=== PATIENT | male | born 1945 | race Caucasian/White ===

== ENCOUNTER 2023-02-10 10:28 | Observation (INO) ==
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
[~2023-02-10 10:28] MED LIST: ACETAMINOPHEN 500 MG TAB PO SCH; CeleBREX 200 MG CAP PO SCH; FAMOTIDINE 20 MG TAB PO SCH; GABAPENTIN 300 MG CAP PO SCH; LR 500ML BOLUS, THEN 15ML/HR IV SCH; METOCLOPRAMIDE HCL 10 MG TABLET PO SCH; ROPIVACAINE 0.5% 5 MG/ML 30 ML VIAL ONE; ROPIVACAINE 0.5% HCL/PF 150 MG, BUPIVACAINE 0.75% MPF 20 ML, EPINEPHrine 30MG/30ML (OR ... INSTIL SCH; TRANEXAMIC ACID 1,000 MG **IV Intra-op IV SCH; TRANEXAMIC ACID 1,000 MG **IV Pre-op IV SCH; ceFAZolin 2000MG 2,000 MG/15 ML SYR IV SCH; dexAMETHasone 4 MG TAB PO SCH
[2023-02-10] MEDS ORDERED: MIDAZOLAM HCL 1 MG/ML 2ML VIAL ONE (11:28)
[2023-02-10] MEDS ORDERED: fentaNYL citrate PF 100 MCG/2 ML VIAL ONE (11:32)
--- NOTE | 2023-02-10 12:22 | History & Physical Bridge Note ---
Date of Service February 10, 2023 History & Physical Bridge Note I have examined the patient, reviewed the History & Physical and in the interval since the performance of the History & Physical I have noted the following changes of clinical significance: no changes noted
[2023-02-10] MEDS ORDERED: PROPOFOL IV EMULSION 10 MG/ML 20 ML VIAL IV ONE (12:41)
[2023-02-10] MEDS ORDERED: LIDOCAINE 2% 2 ML VIAL/AMP(20MG/ML) INFIL ONE (12:41)
[2023-02-10] MEDS ORDERED: ORTHO JOINT ANESTHETIC ONE (13:02)
[2023-02-10] MEDS ORDERED: DEXAMETHASONE SOD INJ 4 MG/ML VIAL ONE (13:22)
[2023-02-10] MEDS ORDERED: ONDANSETRON INJ 2 MG/ML 2 ML VIAL ONE ×2 (13:22→15:54)
[2023-02-10] MEDS ORDERED: ePHEDrine sulfate 50 MG/ML SYR ONE (13:46)
[2023-02-10] MEDS ORDERED: KETAMINE 50 MG/5 ML SYRINGE ONE (14:22)
[2023-02-10] MEDS ORDERED: GLYCOPYRROLATE 0.2 MG/ML VIAL ONE (14:22)
[2023-02-10] MEDS ORDERED: HYDROmorphone INJ 2 MG/ML SYR/VIAL ONE (14:39)
[2023-02-10] MEDS ORDERED: KETOROLAC 30 MG/ML VIAL ONE (15:54)
--- NOTE | 2023-02-10 16:18 | Post Operative Brief Note ---
Immediate Post Op Note v1 Date of Surgery February 10, 2023 Pre & Post Diagnosis Operation Date: 02/10/23 12:10 Pre-Op Diagnosis: Left Knee Osteoarthritis, Retained Hardware, History tibial plateau fracture Post-Op Diagnosis: Left Knee Osteoarthritis, Retained Hardware , history tibial plateau fracture I identified the patient and participated in the time-out.: Yes Procedure Operation Date: 02/10/23 12:10 Actual Procedures p Left Total Knee Arthroplasty, Hardware Removal(Left), lateral release - Amandeep Downs MD Surgeon Amandeep Downs MD Manager Of Enterprise Morro GODINEZ Estimated Blood Loss 25 Findings Consistent with Post-Op Diagnosis Specimens bone cuts and plate Drains Hemovac Drain Anesthesia Type General Regional Complications none Disposition Disposition: Recovery Room Overlapping Procedure I was present for: the critical portions of procedure. Back up surgeon: was not required during procedure.
--- NOTE | 2023-02-10 16:57 | XRay Report ---
TWO VIEWS LEFT KNEE CLINICAL HISTORY: Postoperative examination. FINDINGS: AP and crosstable lateral portable views of the left knee are obtained. A left knee arthrop lasty is in near anatomic alignment. There has been undersurface remodeling of the patella. There is a long tibial stem. No acute fracture is seen. There are expected postoperative changes around the kn ee including skin clips, a surgical drain, soft tissue edema, and subcutaneous gas. Advanced atherosc lerotic calcification is noted in the popliteal artery. IMPRESSION: Expected postoperative changes status post left knee arthroplasty. No acute fracture is s een. ACT 112: Negative or not required by law. Electronically signed by: Hector Pantoja M.D. 02/10/2023 4:55 PM
[2023-02-10] MEDS ORDERED: bisacodyL 10 MG SUPP PR PRN (18:00)
[2023-02-10] MEDS ORDERED: oxyCODONE HCL IR 5 MG TAB (IMMEDIATE RELEASE) PO PRN (18:00)
[2023-02-10] MEDS ORDERED: HYDROmorphone INJ 0.5 MG/0.5 ML SYR IV PRN (18:00)
[2023-02-10] MEDS ORDERED: ONDANSETRON INJ 2 MG/ML 2 ML VIAL IV PRN (18:00)
[2023-02-10] MEDS ORDERED: MAGNESIUM HYDROXIDE SUSP 30 ML UDC PO PRN (18:00)
[2023-02-10] MEDS ORDERED: NALOXONE HCL 0.4 MG/1 ML VIAL/CARP IV PRN (18:00)
[2023-02-10] MEDS: SODIUM CHLORIDE 0.9% 1000ML 1,000 ML IV SCH (18:09)
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
--- NOTE | 2023-02-10 19:06 | Operative Report ---
Post Operative Report Pre & Post Diagnosis Operation Date: 02/10/23 12:10 Pre-Op Diagnosis: Left Knee Osteoarthritis, Retained Hardware, history of tibial plateau fracture Post-Op Diagnosis: Left Knee Osteoarthritis, Retained Hardware, history of tibial plateau fracture I identified the patient and participated in the time-out.: Yes Procedure Operation Date: 02/10/23 12:10 Actual Procedures p Left Total Knee Arthroplasty, deep Hardware Removal( tibial plateau locking plate and screws), lateral release - Amandeep Downs MD Surgeon Amandeep Downs MD Impregnating Tank Operator Morro GODINEZ Estimated Blood Loss 25 Findings Consistent with Post-Op Diagnosis Specimens bone cuts and the plate and screws Drains 2 Hemovac Anesthesia Type General Regional Complications none Disposition Disposition: Recovery Room Indications 77-year-old male status post ORIF tibial plateau fracture years ago. Patient did well for years and has developed osteoarthritis over time. Radiographs dem onstrate tricompartmental osteoarthritis with mainly medial compartment osteoarthritis with varus knee [id number] medial compartment. He has a Synthes lateral tibial plateau locking plate. Description of Procedure Patient taken to the operating room the size under[ General and regional block anesthesia] anesthesia. Patient was placed supine on the operating table. A pneumatic tourniquet was placed about the[ left] upper thigh. The[ left] lower extremity was prepped and draped in sterile fashion. Knee exam demonstrated[ range of motion 20 through 130 with a stable knee and a small effusion. There was a long longitudinal scar biased to the lateral side]. The leg was elevated exsanguinated with an Esmarch bandage and pneumatic tourniquet was raised to[ 325] millimeters of mercury. Skin incised sharply in longitudinal fashion. Subcutaneous flaps elevated. incision was first made over the plate splitting the fascia of the tibialis anterior and then curving it in a hockey-stick fashion over the plate staying anterior to the fibula. A Argueta elevator was used to free up the muscle and scar tissue off the plate. There was a stainless steel Synthes plate in position. There were locking screws proximally and cortical screws distally. Locking screws were very tight so we had to use a star screwdriver crew top of the screws back in fourth to break them loose and then used power to remove the screws. This took some time as the screws were very tight and we want to avoid screw breakage. All of the screws were removed which included 8 screws that we took out. Plate came off uneventfully. Wound was copiously irrigated. An Incision was then made through the medial retinaculum extending up in the mid third of the quadriceps tendon and down to the medial tibial tubercle. Intra-articular findings demonstrated[ tricompartmental osteoarthritis mainly medial and lateral compartments [id number] medial compartment but there was some lateral femoral condylar grade 4 changes. The tibial plateau fracture was healed still in reasonably good alignment.]. The [employer] total knee arthroplasty system was used. To expose the knee the infrapatellar fat pad was resected. The menisci and cruciate ligaments were resected. The anterior fat pad over the femur in the area of the anterior flange of the femoral component was resected. Lateral synovial bands release. The femur was exposed. An intramedullary drill hole was made into the canal. A guide german was placed. Distal femoral cutting guide was adjusted to resect a[ 5] degree valgus cut with[510] millimeters distal femur resected. The knee was extended and a subperiosteal peel lateral release was performed around the patella. Patella width was measured and width was reproduced using a freehand cut technique and a[ 39 symmetrical] patella component. The 3 drill holes were made and the excess lateral facet was beveled off to prevent any impingement. Attention was taken back to the femur which was exposed with retractors and the femoral sizing guide was pinned in position. The drill holes were placed in 3 of external rotation to match epicondylar axis. Femur sized for an[ 8] component. The 4-in-1 cutting block was placed and then the anterior posterior and chamfer cuts are made. The tibia was then subluxed. The external tibial cutting guide was just to make a perpendicular cut to the long axis of the tibia below the most deficient bone loss side. A lamina pressure washer was used and the flexion extension gaps were balanced. this required a medial posterior medial release but the semimembranosus did not require to be released. All posterior osteophytes removed. All meniscal remnants were resected. The tibia exposed and the trial tibial component size[ 8] was externally rotated in line with the tibial tubercle and pinned in position. The punch for stem was used. The notch cutting device was centered appropriately and the femoral notch cut was made. The femoral trial was inserted. Trial tibial inserts were placed and size[11] gave balanced ligaments through flexion and extension. Patella tracking was assessed. The patella tracked[ with some slight lift off and deep flexion so I went ahead and did a lateral release leaving the synovium intact. The patella then tracked centrally.]. The trial components were then removed and the orthomix anesthetic cocktail was injected per protocol. The knee was then copiously irrigated with pulsatile lavage saline solution. Final components were then cemented with Refobicin cement. Final components were[ triathlon size 8 left posterior stabilized femoral component, femoral distal fixation pegs, and 8 tibial component with a 12 x 100 mm stem extension and 8 x 11 mm posterior stabilized X.3 polyethylene tibial bearing insert and X.3 polyethylene symmetrical patella 39 x 11 mm]. While the cement was curing the tibialis anterior fascia and fascia over the plate IT band region were repaired with interrupted [id number]-[id number] #1 Vicryl sutures. After the cement cured the Betadine soak was used for 3 minutes. the tourniquet was let down at this time at 2 hours. No major bleeding was noted small vessels were cauterized. Further pulsatile lavage irrigation was then performed and 2 Hemovac drains were brought out laterally. The quadriceps tendon and medial retinaculum were closed with figure of 8 #1 Vicryl sutures. The knee was taken through full range of motion and the repair was secure. Knee range of motion was[ 0 through 130 degrees.]. The subc utaneous tissues were closed with 2-0 Vicryl sutures. Skin was closed with[ Caroline]. Sterile dressings were applied. The patient tolerated the procedure well.[ Morro Oneal] HERBERT was my physician residential real estate assistant who participated as assistant boiler operator and was involved in all aspects of the procedure including patient positioning prepping and draping,leg positioning ,soft tissue retraction and instrument management and participated in the closing and will participate in postoperative care of the patient. The patient tolerated the procedure well. I attest to the content of the Intraoperative Record and any orders documented therein. Any exceptions are noted below.
--- NOTE | 2023-02-10 19:11 | Anesthesiology Progress Note ---
Date of Service February 10, 2023 Anesthesia Post Procedure Vital Signs Vital Signs: Temp Pulse Pulse Pulse Resp BP Pulse Ox 02/10/23 18:55 36.9 C 96 H 16 116/70 95 02/10/23 18:25 37.0 C 99 H 16 134/73 96 02/10/23 18:17 02/10/23 18:02 36.9 C 94 H 16 111/59 L 94 02/10/23 17:25 92 H 16 106/58 L 96 02/10/23 17:15 88 16 109/62 96 02/10/23 16:55 92 H 16 105/60 96 02/10/23 17:35 36.7 C 101 H 15 103/63 95 02/10/23 17:05 90 17 109/60 02/10/23 16:45 101 H 10 L 108/62 96 02/10/23 16:38 36.6 C 96 H 16 107/62 95 02/10/23 10:46 36.6 C 53 L 18 144/88 H 98 O2 Del Method O2 Flow Rate 02/10/23 18:55 Nasal Cannula 1 02/10/23 18:25 Room Air 02/10/23 18:17 Nasal Cannula 1 02/10/23 18:02 Nasal Cannula 1 02/10/23 17:25 Oxymask 10 02/10/23 17:15 Oxymask 10 02/10/23 16:55 Oxymask 10 02/10/23 17:35 Nasal Cannula 2 02/10/23 17:05 Oxymask 10 02/10/23 16:45 Oxymask 10 02/10/23 16:38 Oxymask 10 02/10/23 10:46 Room Air Pain Intensity Left Knee: Pain Intensity: 0 Transfer of Care Handoff Completed per policy Notes Mental Status: alert / awake / arousable Patient Amnestic to Procedure: Yes Nausea / Vomiting: adequately controlled Pain: adequately controlled Airway Patency, RR, SpO2: stable & adequate BP & HR: stable & adequate Hydration State: stable & adequate Anesthetic Complications: no major complications apparent
[2023-02-10] MEDS: ACETAMINOPHEN 500 MG TAB PO SCH (21:55)
[2023-02-10] MEDS: SENNA 8.6 MG TAB PO SCH (21:55)
[2023-02-10] MEDS: ASPIRIN 81 MG ECTAB PO SCH (21:55)
[2023-02-10] MEDS: SIMVASTATIN 20 MG TAB PO SCH (21:55)
[2023-02-10] MEDS: DOCUSATE SODIUM 100 MG CAP PO SCH (21:55)
[2023-02-10] MEDS: ceFAZolin 2000MG 2,000 MG/15 ML SYR IV SCH (21:56)
[2023-02-11] MEDS: SODIUM CHLORIDE 0.9% 1000ML 1,000 ML IV SCH ×3 (04:05→14:11)
[2023-02-11] MEDS: ceFAZolin 2000MG 2,000 MG/15 ML SYR IV SCH (04:05)
[2023-02-11] MEDS: ACETAMINOPHEN 500 MG TAB PO SCH ×3 (06:00→21:25)
[2023-02-11 06:23] LABS: Hematocrit (blood only) 36.2 % (42.0-52.0); Hemoglobin 11.9 g/dl (14.0-18.0); Mean Corpuscular Hemoglobin 28.3 pg (25.0-34.0); Mean Corpuscular Hgb Conc 32.9 g/dL (32.0-36.0); Mean Corpuscular Volume 86.2 fL (80.0-100.0); Mean Platelet Volume 11.3 fL (9.4-12.4); Platelet Count 152 K/uL (130-400); RDW Coefficient of Variation 13.4 % (11.5-14.5); RDW Standard Deviation 41.9 fL (36.4-46.3); White Blood Count 11.89 K/ul (4.8-10.8)
[2023-02-11 06:39] LABS: Calcium 8.4 mg/dl (8.6-10.3); Est GFR (African American) 90.9 ml/min; Est GFR (Non-African American) 78.4 ml/min; Potassium 4.5 mmol/L (3.5-5.1)
--- NOTE | 2023-02-11 07:49 | Orthopedic Progress Note ---
Date of Service February 11, 2023 Assessment & Plan (1) Post-traumatic osteoarthritis of left knee: Plan: Postop day #1 left total knee arthroplasty and hardware removal -PT/OT -Pain management as written -DVT prophylaxis: SCDs, teds, aspirin 81 mg twice daily. Patient is also on Plavix. We will resume Plavix this evening. -AM labs: Hemoglobin 11.9 from 15 preop. Acute blood loss anemia due to surgical loss versus dilutional. Patient has had 515 cc of output from his Hemovac overnight. Will monitor. -Discharge planning: Plan on discharge home with outpatient physical therapy. We will monitor Hemovac output. If continues to be elevated will continue with drain and likely plan on discharge home tomorrow. If drainage slows possible discharge home today. Admission and Anticipated Discharge Date Admission Date: February 10, 2023 Subjective Postop day 1 left total knee arthroplasty and hardware removal. Patient is doing well this morning. His pain is controlled. He has no current complaints. Denies chest pain, dizziness, nausea/vomiting/diarrhea, headaches or dizziness. Review of Systems Review of Systems: All systems reviewed & are unremarkable except as noted in Subjective Physical Exam Physical Exam: Left knee: Hemovac in place. Dressing is clean, dry, intact. Toes are mobile with good dorsiflexion. No calf tenderness. Able to straight leg raise. Distally neurovascular status and sensation intact. Constitutional: WD/WN, vitals as above Results & Data Vital Signs (Past 12 Hours) Vital Signs Temp Pulse Pulse Pulse Resp BP BP 02/11/23 07:31 60 98/60 L 02/11/23 06:27 59 L 92/51 L 90/44 L 02/11/23 04:38 36.6 C 60 18 101/47 L 02/11/23 04:02 60 91/54 L 02/11/23 01:50 36.5 C 82 18 94/56 L 02/10/23 22:04 02/10/23 20:52 36.5 C 76 18 115/62 02/10/23 19:55 36.4 C L 98 H 18 118/64 Pulse Ox O2 Del Method O2 Flow Rate 02/11/23 07:31 02/11/23 06:27 02/11/23 04:38 91 Room Air 02/11/23 04:02 02/11/23 01:50 92 Room Air 02/10/23 22:04 93 Room Air 02/10/23 20:52 96 Nasal Cannula 1 02/10/23 19:55 95 Nasal Cannula 1 Laboratory Results Lab Results 02/10/23 02/10/23 02/11/23 Range/Units 10:43 Unknown 05:27 WBC 11.89 H (4.8-10.8) K/ul RBC 4.20 L (4.70-6.10) M/uL Hgb 11.9 L (14.0-18.0) g/dl Hct 36.2 L (42.0-52.0) % MCV 86.2 (80.0-100.0) fL MCH 28.3 (25.0-34.0) pg MCHC 32.9 (32.0-36.0) g/dL RDW Std Deviation 41.9 (36.4-46.3) fL RDW Coeff of Christopher 13.4 (11.5-14.5) % Plt Count 152 (130-400) K/uL MPV 11.3 (9.4-12.4) fL Sodium (136-145) mmol/L Potassium (3.5-5.1) mmol/L Chloride (98-107) mmol/L Carbon Dioxide (21-32) mmol/L Anion Gap (3-11) BUN (6-23) mg/dl Creatinine (0.6-1.4) mg/dl Est Cr Clr Drug Dosing ml/min Est GFR ( Amer) ml/min Est GFR (Non-Af Amer) ml/min BUN/Creatinine Ratio (10-20) Glucose (70-99(Fasting)) mg/dl Calcium (8.6-10.3) mg/dl SARS-CoV-2, RNA, NAAT NEGATIVE (NEGATIVE) Blood Type A Positive Antibody Screen NEGATIVE 02/11/23 Range/Units 05:27 WBC (4.8-10.8) K/ul RBC (4.70-6.10) M/uL Hgb (14.0-18.0) g/dl Hct (42.0-52.0) % MCV (80.0-100.0) fL MCH (25.0-34.0) pg MCHC (32.0-36.0) g/dL RDW Std Deviation (36.4-46.3) fL RDW Coeff of Christopher (11.5-14.5) % Plt Count (130-400) K/uL MPV (9.4-12.4) fL Sodium 135 L (136-145) mmol/L Potassium 4.5 (3.5-5.1) mmol/L Chloride 106 (98-107) mmol/L Carbon Dioxide 22 (21-32) mmol/L Anion Gap 7 (3-11) BUN 31 H (6-23) mg/dl Creatinine 0.94 (0.6-1.4) mg/dl Est Cr Clr Drug Dosing 69.0 ml/min Est GFR ( Amer) 90.9 ml/min Est GFR (Non-Af Amer) 78.4 ml/min BUN/Creatinine Ratio 33.0 H (10-20) Glucose 186 H (70-99(Fasting)) mg/dl Calcium 8.4 L (8.6-10.3) mg/dl SARS-CoV-2, RNA, NAAT (NEGATIVE) Blood Type Antibody Screen
[2023-02-11] MEDS: CHOLECALCIFEROL 1,000 UNITS 25 MCG TAB PO SCH (08:51)
[2023-02-11] MEDS: DOCUSATE SODIUM 100 MG CAP PO SCH ×2 (08:51→21:24)
[2023-02-11] MEDS: ASPIRIN 81 MG ECTAB PO SCH ×2 (08:51→21:23)
[2023-02-11] MEDS: MULTIVITAMIN TAB PO SCH (08:51)
[2023-02-11] MEDS: CALCIUM CARBONATE 500 MG CHEWABLE TAB PO SCH (08:51)
[2023-02-11] MEDS ORDERED: CALCIUM CARBONATE 1250MG TAB PO SCH (09:00)
[2023-02-11] MEDS ORDERED: LOSARTAN POTASSIUM 50 MG TAB PO SCH (09:00)
[2023-02-11] MEDS ORDERED: CLOPIDOGREL BISULFATE 75 MG TAB PO SCH (09:00)
--- NOTE | 2023-02-11 14:34 | Hospitalist Progress Note ---
Date of Service February 11, 2023 Assessment & Plan (1) Post-traumatic osteoarthritis of left knee: (2) Hypertension: Plan Patient is a 77-year-old male who has significant past medical history of HTN, HLD, history of retinal vein occlusion of left eye, history of prostate cancer, carotid artery disease who presented for elective left total knee replacement. 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 Follows [facility] vascular every 2 years Resume Plavix when okay with orthopedics DVT Px: ASA BID per Ortho Code Status Full code Admission and Anticipated Discharge Date Admission Date: February 10, 2023 Subjective Patient is seen and examined at bedside Denies any significant left knee pain at surgical site Also denies any chest pain, dyspnea, dizziness, nausea, vomiting, abdominal pain Family at bedside Offers no other complaints Noted low BP this morning Review of Systems Review of Systems: All systems reviewed & are unremarkable except as noted in Subjective Physical Exam Physical Exam: Physical Exam: Vitals signs as noted above General Appearance:Moderately built and nourished, no apparent distress Head: normocephalic, Atraumatic Eyes: normal inspection, EOMI Neck: supple, Trachea midline Respiratory/Chest: Normal breath sounds, CTA, No accessory muscle use Cardiovascular: S1, S2, No murmur Abdomen/GI:Soft, Non tender, Bowel sounds present Extremities/Musculoskeletal:normal inspection, no edema, L knee surgical site in dressing,+drain Neurologic/Psych:AAOX3, grossly no focal neurological deficits Skin: normal color, warm Results & Data Results & Data Vital Signs (Past 12 Hours) Vital Signs Temp Pulse Pulse Resp BP BP Pulse Ox 02/11/23 11:06 36.9 C 61 16 100/61 93 02/11/23 07:31 60 98/60 L 02/11/23 06:27 59 L 92/51 L 90/44 L 02/11/23 04:38 36.6 C 60 18 101/47 L 91 02/11/23 04:02 60 91/54 L O2 Del Method 02/11/23 11:06 Room Air 02/11/23 07:31 02/11/23 06:27 02/11/23 04:38 Room Air 02/11/23 04:02 Laboratory Results Short CBC 02/11/23 Range/Units 05:27 WBC 11.89 H (4.8-10.8) K/ul Hgb 11.9 L (14.0-18.0) g/dl Hct 36.2 L (42.0-52.0) % Plt Count 152 (130-400) K/uL BMP 02/11/23 05:27 Sodium 135 L Potassium 4.5 Chloride 106 Carbon Dioxide 22 BUN 31 H Creatinine 0.94 Glucose 186 H Calcium 8.4 L
[2023-02-11 19:49] LABS: Hematocrit (blood only) 30.3 % (42.0-52.0); Hemoglobin 10.2 g/dl (14.0-18.0)
[2023-02-11] MEDS: SENNA 8.6 MG TAB PO SCH (21:24)
[2023-02-11] MEDS: SIMVASTATIN 20 MG TAB PO SCH (21:24)
[2023-02-12] MEDS: ACETAMINOPHEN 500 MG TAB PO SCH (05:46)
[2023-02-12 06:13] LABS: Hematocrit (blood only) 29.5 % (42.0-52.0); Hemoglobin 9.8 g/dl (14.0-18.0); Mean Corpuscular Hemoglobin 28.4 pg (25.0-34.0); Mean Corpuscular Hgb Conc 33.2 g/dL (32.0-36.0); Mean Corpuscular Volume 85.5 fL (80.0-100.0); Mean Platelet Volume 11.3 fL (9.4-12.4); Platelet Count 128 K/uL (130-400); RDW Coefficient of Variation 13.7 % (11.5-14.5); RDW Standard Deviation 42.7 fL (36.4-46.3); Red Blood Count 3.45 M/uL (4.70-6.10); White Blood Count 8.51 K/ul (4.8-10.8)
[2023-02-12 06:29] LABS: BUN Creatinine Ratio 23.9 (10-20); Creatinine Clr Calc Pharmacy 73.7 ml/min; Est GFR (African American) 96.7 ml/min; Est GFR (Non-African American) 83.4 ml/min; Potassium 4.4 mmol/L (3.5-5.1)
[2023-02-12] MEDS: MULTIVITAMIN TAB PO SCH (08:23)
[2023-02-12] MEDS: ASPIRIN 81 MG ECTAB PO SCH (08:23)
[2023-02-12] MEDS: CHOLECALCIFEROL 1,000 UNITS 25 MCG TAB PO SCH (08:23)
[2023-02-12] MEDS: DOCUSATE SODIUM 100 MG CAP PO SCH (08:24)
[2023-02-12 08:38] LABS: Estimated Average Glucose 120 mg/dl; Hemoglobin A1C 5.8 % (4.5-5.6)
--- NOTE | 2023-02-12 08:57 | Orthopedic Progress Note ---
Date of Service February 12, 2023 Assessment & Plan (1) Post-traumatic osteoarthritis of left knee: Plan: Postop day #2 left total knee arthroplasty and hardware removal -PT/OT -Pain management as written -DVT prophylaxis: SCDs, teds, aspirin 81 mg twice daily. Patient is also on Plavix. We will resume Plavix this evening. -AM labs: Hemoglobin 9.8 patient asymptomatic, Hemovac no longer holding suction likely secondary to Hemovac and partially out of the joint. Discontinue Hemovac and dressing today. -Discharge planning: Plan on discharge home with outpatient physical therapy. Admission and Anticipated Discharge Date Admission Date: February 10, 2023 Subjective Postop day 2 Patient currently sitting up finishing his breakfast. No complaints this morning. He is hoping to go home today. Physical Exam Physical Exam: Dressings are clean, dry, and intact. Hemovac is present but no longer holding suction. Calves are soft nontender. Neurovascular intact. Toes are mobile. Results & Data Vital Signs (Past 12 Hours) Vital Signs Temp Pulse Pulse Pulse Resp BP BP 02/12/23 08:51 36.4 C L 53 L 61 69 16 122/71 114/66 02/12/23 07:25 36.4 C L 53 L 16 114/66 Pulse Ox O2 Del Method 02/12/23 08:51 94 02/12/23 07:25 94 Room Air Laboratory Results 02/12/23 02/12/23 02/12/23 Range/Units 05:41 05:41 05:41 WBC 8.51 (4.8-10.8) K/ul RBC 3.45 L (4.70-6.10) M/uL Hgb 9.8 L (14.0-18.0) g/dl Hct 29.5 L (42.0-52.0) % MCV 85.5 (80.0-100.0) fL MCH 28.4 (25.0-34.0) pg MCHC 33.2 (32.0-36.0) g/dL RDW Std Deviation 42.7 (36.4-46.3) fL RDW Coeff of Christopher 13.7 (11.5-14.5) % Plt Count 128 L (130-400) K/uL MPV 11.3 (9.4-12.4) fL Sodium 142 (136-145) mmol/L Potassium 4.4 (3.5-5.1) mmol/L Chloride 111 H (98-107) mmol/L Carbon Dioxide 28 (21-32) mmol/L Anion Gap 3 (3-11) BUN 21 (6-23) mg/dl Creatinine 0.88 (0.6-1.4) mg/dl Est Cr Clr Drug Dosing 73.7 ml/min Est GFR ( Amer) 96.7 ml/min Est GFR (Non-Af Amer) 83.4 ml/min BUN/Creatinine Ratio 23.9 H (10-20) Glucose 96 (70-99(Fasting)) mg/dl Estimat Average Glucose 120 mg/dl Hemoglobin A1c 5.8 H (4.5-5.6) % Calcium 8.0 L (8.6-10.3) mg/dl 02/11/23 Range/Units 19:19 WBC (4.8-10.8) K/ul RBC (4.70-6.10) M/uL Hgb 10.2 L (14.0-18.0) g/dl Hct 30.3 L (42.0-52.0) % MCV (80.0-100.0) fL MCH (25.0-34.0) pg MCHC (32.0-36.0) g/dL RDW Std Deviation (36.4-46.3) fL RDW Coeff of Christopher (11.5-14.5) % Plt Count (130-400) K/uL MPV (9.4-12.4) fL Sodium (136-145) mmol/L Potassium (3.5-5.1) mmol/L Chloride (98-107) mmol/L Carbon Dioxide (21-32) mmol/L Anion Gap (3-11) BUN (6-23) mg/dl Creatinine (0.6-1.4) mg/dl Est Cr Clr Drug Dosing ml/min Est GFR ( Amer) ml/min Est GFR (Non-Af Amer) ml/min BUN/Creatinine Ratio (10-20) Glucose (70-99(Fasting)) mg/dl Estimat Average Glucose mg/dl Hemoglobin A1c (4.5-5.6) % Calcium (8.6-10.3) mg/dl
[2023-02-12] MEDS: CALCIUM CARBONATE 500 MG CHEWABLE TAB PO SCH (09:31)
--- NOTE | 2023-02-12 16:40 | Discharge Summary ---
Date of Service February 12, 2023 Admission HPI Per Admitting Provider 77-year-old male with past medical history significant for carotid artery disease, hypertension, high cholesterol, tibial plateau fracture status post ORIF left knee who presents with progressively worsening left knee pain. Patient has failed conservative measures including steroid injections. Pain is interfering with his daily activities. He would like to proceed with surgical invention. Patient denies headaches, sweats, fevers, chills, double vision, blurred vision, cough, sore throat, dysphagia, chest pain, sob, wheezing, n/v/d/c, numbness, tingling, fatigue, urinary symptoms, mood disorders. ROS positive for left knee pain and stiffness. Admission Exam Per Admitting Provider Constitutional: well developed and well nourished; no acute distress Eyes: PERRL, conjunctivae normal, anicteric sclerae ENMT: external ear and nose normal, oropharynx normal Neck: trachea midline, no thyromegaly Respiratory: normal respiratory effort, lungs clear to auscultation Cardiovascular: RRR, no murmur, no edema Musculoskeletal: Left knee: Range of motion is mild effusion. Tenderness medial joint line. There is crepitation with range of motion. Positive Mary's. Pseudolaxity with valgus stress. Swelling of the lateral tibial plateau over the plate. Stable to valgus and varus stress test. 15 to 130 degrees. There is varus alignment. Skin: no rashes, warm and dry Neurologic: patellar DTR's 2+ bilat, sensation intact Psychiatric: A+Ox3, euthymic affect Principal Diagnosis Left knee osteoarthritis Discharge Exam Dressings are clean, dry, and intact. Hemovac is present but no longer holding suction. Calves are soft nontender. Neurovascular intact. Toes are mobile. Constitutional WD/WN, vitals as above Discharge Data Allergies Allergy/AdvReac Type Severity Reaction Status Date / Time No Known Allergies Allergy Verified 02/10/23 10:44 Consultations 02/08/23 12:19 Consult Hospitalist Routine Procedures Performed Operation Date: 02/10/23 12:10 Actual Procedures p Left Total Knee Arthroplasty, (Left) - Amandeep Downs MD s Removal Hardware - Amandeep Downs MD Ordered Studies 02/10/23 05:00 US - OR guided needle placemen Routine Hospital Course (1) Post-traumatic osteoarthritis of left knee: Postop day #2 left total knee arthroplasty and hardware removal -PT/OT -Pain management as written -DVT prophylaxis: SCDs, teds, aspirin 81 mg twice daily. Patient is also on Plavix. We will resume Plavix this evening. -AM labs: Hemoglobin 9.8 patient asymptomatic, Hemovac no longer holding suction likely secondary to Hemovac and partially out of the joint. Discontinue Hemovac and dressing today. -Discharge planning: Plan on discharge home with outpatient physical therapy. Postop day #1 left total knee arthroplasty and hardware removal -PT/OT -Pain management as written -DVT prophylaxis: SCDs, teds, aspirin 81 mg twice daily. Patient is also on Plavix. We will resume Plavix this evening. -AM labs: Hemoglobin 11.9 from 15 preop. Acute blood loss anemia due to surgical loss versus dilutional. Patient has had 515 cc of output from his Hemovac overnight. Will monitor. -Discharge planning: Plan on discharge home with outpatient physical therapy. We will monitor Hemovac output. If continues to be elevated will continue with drain and likely plan on discharge home tomorrow. If drainage slows possible discharge home today. Lab Results 02/10/23 //23 // Range/Units 10:43 Unknown 05:27 WBC 11.89 H (4.8-10.8) K/ul RBC 4.20 L (4.70-6.10) M/uL Hgb 11.9 L (14.0-18.0) g/dl Hct 36.2 L (42.0-52.0) % MCV 86.2 (80.0-100.0) fL MCH 28.3 (25.0-34.0) pg MCHC 32.9 (32.0-36.0) g/dL RDW Std Deviation 41.9 (36.4-46.3) fL RDW Coeff of Christopher 13.4 (11.5-14.5) % Plt Count 152 (130-400) K/uL MPV 11.3 (9.4-12.4) fL Sodium (136-145) mmol/L Potassium (3.5-5.1) mmol/L Chloride (98-107) mmol/L Carbon Dioxide (21-32) mmol/L Anion Gap (3-11) BUN (6-23) mg/dl Creatinine (0.6-1.4) mg/dl Est Cr Clr Drug Dosing ml/min Est GFR ( Amer) ml/min Est GFR (Non-Af Amer) ml/min BUN/Creatinine Ratio (10-20) Glucose (70-99(Fasting)) mg/dl Estimat Average Glucose mg/dl Hemoglobin A1c (4.5-5.6) % Calcium (8.6-10.3) mg/dl SARS-CoV-2, RNA, NAAT NEGATIVE (NEGATIVE) Blood Type A Positive Antibody Screen NEGATIVE 02/11/23 02/11/23 02/12/23 Range/Units 05:27 19:19 05:41 WBC 8.51 (4.8-10.8) K/ul RBC 3.45 L (4.70-6.10) M/uL Hgb 10.2 L 9.8 L (14.0-18.0) g/dl Hct 30.3 L 29.5 L (42.0-52.0) % MCV 85.5 (80.0-100.0) fL MCH 28.4 (25.0-34.0) pg MCHC 33.2 (32.0-36.0) g/dL RDW Std Deviation 42.7 (36.4-46.3) fL RDW Coeff of Christopher 13.7 (11.5-14.5) % Plt Count 128 L (130-400) K/uL MPV 11.3 (9.4-12.4) fL Sodium 135 L (136-145) mmol/L Potassium 4.5 (3.5-5.1) mmol/L Chloride 106 (98-107) mmol/L Carbon Dioxide 22 (21-32) mmol/L Anion Gap 7 (3-11) BUN 31 H (6-23) mg/dl Creatinine 0.94 (0.6-1.4) mg/dl Est Cr Clr Drug Dosing 69.0 ml/min Est GFR ( Amer) 90.9 ml/min Est GFR (Non-Af Amer) 78.4 ml/min BUN/Creatinine Ratio 33.0 H (10-20) Glucose 186 H (70-99(Fasting)) mg/dl Estimat Average Glucose mg/dl Hemoglobin A1c (4.5-5.6) % Calcium 8.4 L (8.6-10.3) mg/dl SARS-CoV-2, RNA, NAAT (NEGATIVE) Blood Type Antibody Screen 02/12/23 02/12/23 Range/Units 05:41 05:41 WBC (4.8-10.8) K/ul RBC (4.70-6.10) M/uL Hgb (14.0-18.0) g/dl Hct (42.0-52.0) % MCV (80.0-100.0) fL MCH (25.0-34.0) pg MCHC (32.0-36.0) g/dL RDW Std Deviation (36.4-46.3) fL RDW Coeff of Christopher (11.5-14.5) % Plt Count (130-400) K/uL MPV (9.4-12.4) fL Sodium 142 (136-145) mmol/L Potassium 4.4 (3.5-5.1) mmol/L Chloride 111 H (98-107) mmol/L Carbon Dioxide 28 (21-32) mmol/L Anion Gap 3 (3-11) BUN 21 (6-23) mg/dl Creatinine 0.88 (0.6-1.4) mg/dl Est Cr Clr Drug Dosing 73.7 ml/min Est GFR ( Amer) 96.7 ml/min Est GFR (Non-Af Amer) 83.4 ml/min BUN/Creatinine Ratio 23.9 H (10-20) Glucose 96 (70-99(Fasting)) mg/dl Estimat Average Glucose 120 mg/dl Hemoglobin A1c 5.8 H (4.5-5.6) % Calcium 8.0 L (8.6-10.3) mg/dl SARS-CoV-2, RNA, NAAT (NEGATIVE) Blood Type Antibody Screen Total Time Total Time Spent Total Time Spent (In Minutes): 20 Discharge Plan Discharge Items Patient Disposition: Home - Self-Care Reason For Visit: LEFT KNEE OSTEOARTHRITIS Discharge Diagnosis: Left knee osteoarthritis Activity: Per Instructions section Non-emergency contact: Surgeon Call non-emergency contact if: you have any medication questions, your pain is not controlled, your pain is concerning for you, you have a fever, your temperature is above 101, your wound has increased redness and your wound has increased drainage Follow-up/Referrals: Amandeep Downs MD [Surgeon] - (Follow-up with Dr. Downs or his PA in 2 weeks from the day of your surgery for your first postoperative visit.) Chhaya Chávez DO [Primary Care Provider] - Diet: Regular Addtl Attending Provider Instructions: ACTIVITY RECOMMENDATIONS: SELF CARE INSTRUCTIONS AFTER TOTAL KNEE REPLACEMENT A. You may need to continue a physical therapy program after discharge from the hospital. There are several options available to you. Your doctor will assist you in selecting the best one for you. 1. An out-patient facility 2 to 3 times a week for therapy or home therapy. 2. Continue working on all exercises taught to you in the hospital. Your goals should be to increase bending of your knee to 90 degrees and beyond and to fully straighten your knee. B. You may progress at your own pace from walking with a walker or crutches to a cane; then to no assistive devices. C. Make walking a part of your daily routine. Be up as much as comfortable with rest periods throughout the day. Rest with leg elevation is very important. Use the ice wrap frequently for the first 3-4 weeks. D. There are no restrictions on activities. You may ride in a car, shop, participate in car ferry captain and all social activities. E. Wear the long elastic stockings (LUANA hose) 20 hours a day for 2 weeks after surgery. They can be removed several times a day for laundering and for a bath. F. You may shower, no tub baths until cleared by your doctor. SPECIAL CARE INSTRUCTIONS: VERY IMPORTANT TO READ AND REVIEW A. There are a few signs you need to watch for after you are home. Call [facility] if you notice any of the followin. Increased severe knee pain. Some pain is expected especially when you exercise. 2. Increased swelling in your leg or knee; pain or swelling of the calf muscle in either lower leg. 3. Any fluid drainage from the incision. 4. Shortness of breath or chest pain. B. Please call [facility] at if you have any concerns or questions about your operation or recovery. The doctor or his nurse will return your call promptly. C. You must take antibiotics before dental work, bladder, bowel or other surgery. Your doctor will provide you with a permanent care to carry describing this precaution. IMPORTANT: * REMEMBER TO TAKE ASPIRIN, 81 MG, TWICE DAILY FOR 4 WEEKS UNLESS OTHERWISE DIRECTED. THIS IS YOUR BLOOD THINNER. * HIGH RISK PATIENTS MAY BE PRESCRIBED A STRONGER BLOOD THINNER. THIS WILL BE PROVIDED AT DISCHARGE. * CALL IF INCREASED PAIN, REDNESS, DRAINAGE OR FEVER GREATER THAT 101. * WEAR LUANA HOSE 20 HOURS PER DAY FOR 2 WEEKS. * You should perform daily dressing changes. If dry, okay to leave open to air. You may get incision indirectly wet in the shower 48 hours after your surgery. Do not soak or submerge incision. . IF INCISION IS LEAKING THROUGH DRESSING, CALL THE OFFICE . FOLLOW UP VISIT: If appointment is not already scheduled: Please call [facility] to make a follow-up appointment for 2 weeks after your surgery at . Pending Studies at Discharge: No Stand-Alone Forms: My [facility] [place], Pain - Opioid Pain Management, Smoking Cessation Medications and DC Order Prescriptions: New aspirin 81 mg Tablet,Delayed Release (Dr/Ec) 81 mg PO BID 30 Days Qty: 60 0RF acetaminophen [Tylenol Extra Strength] 500 mg Tablet 1,000 mg PO Q8 14 Days Qty: 84 0RF polyethylene glycol 3350 [Miralax] 17 gram powder in packet 17 g PO DAILY PRN (Reason: constipation) Qty: 5 0RF cefadroxil 500 mg capsule 500 mg PO BID Qty: 14 0RF oxycodone 5 mg tablet 5 mg PO Q4H MDD 6 PRN (Reason: pain) Qty: 30 0RF Continued turmeric root extract 500 mg Capsule 1,000 mg PO BID calcium 250 mg Tablet 250 mg PO QAM cholecalciferol (vitamin D3) [Vitamin D3] 25 mcg (1,000 unit) Tablet 25 mcg PO QAM losartan 50 mg Tablet 50 mg PO QAM clopidogrel [Plavix] 75 mg Tablet 75 mg PO QAM simvastatin 20 mg Tablet 20 mg PO HS Discontinued aspirin 81 mg Tablet 81 mg PO QAM omega-3 fatty acids Capsule 1,000 mg PO QAM oxycodone-acetaminophen [Percocet] 5-325 mg Tablet 1 - 2 tab PO .Q4h-6h MDD 6 PRN (Reason: pain) Qty: 30 0RF Rx Instructions: Ongoing therapy, Dr. Downs supervising Discharge Orders: Discharge Order (Routine); Ordered 02/12/23 Ordered By: Willis Gonzales/Other Patient Handouts: DVT Post Op Prevention Admission Data Admit Date/Time: 02/10/23 15:48 Attending Provider: Amandeep Downs Admit Provider: Amandeep Downs Primary Care Provider: Chhaya Chávez Other Providers: Jazmyne An Other Interventions: Discharge Summary Assessment (RN) Last Done: 02/12/23 08:51
== END 2023-02-12 11:06 | disposition home or self-care (01) ==
LOC: ASU 10:28 → 3E 10:28 → SUATTDRO 15:48